=== PATIENT | male | born 1995 | race Caucasian/White ===

== ENCOUNTER 2016-11-10 09:01 | Outpatient (CLI) | payer OTHER | END 2016-11-10 09:02 | disposition home or self-care (01) | DX: M75.102 Unspecified rotator cuff tear or rupture of left shoulder, not specified as traumatic (principal) ==

== ENCOUNTER 2019-05-19 16:06 | Emergency (ER) | payer OTHER ==
[2019-05-19 16:16] VITALS: BP 122/74
--- NOTE | 2019-05-19 16:31 | ED Physician Documentation ---
PD HPI HEENT - Stated complaint Stated Complaint: THROAT PX - Chief complaint Chief Complaint: Heent - History obtained from History obtained from: Patient - History of Present Illness Timing - onset: How many weeks ago (1) Timing - duration: Weeks (1) Timing - details: Gradual onset, Still present Location: Throat Improves: Medication Worsens: Swalllowing Associated symptoms: Congestion, Rhinorrhea, Cough Similar symptoms before: Has not had sx before Recently seen: Not recently seen - Additional information Additional information: 23-year-old male has developed a sore throat he does not have cough or fever associated with this he does have a sensation of irritation to his throat behind his Amilcar's apple. He has pain with swallowing in his pain is worsened. He does now have some postnasal drip and is swallowing some phlegm. Review of Systems Constitutional: denies: Fever Eyes: denies: Decreased vision Ears: denies: Ear pain Nose: reports: Rhinorrhea / runny nose, Congestion Throat: reports: Sore throat Cardiac: denies: Chest pain / pressure, Palpitations Respiratory: reports: Cough. denies: Dyspnea GI: denies: Vomiting PD PAST MEDICAL HISTORY - Present Medications Home Medications: Ambulatory Orders Medication Instructions Recorded Confirmed Amox/Clav 875/125 [Augmentin] 1 each PO Q12H #20 tablet 05/19/19 - Allergies Allergies/Adverse Reactions: Allergies Allergy/AdvReac Type Severity Reaction Status Date / Time No Known Drug Allergies Allergy Verified 05/19/19 16:16 PD ED PE NORMAL - General General: Alert and oriented X 3, No acute distress, Well developed/nourished - HEENT HEENT: Atraumatic, PERRL, EOMI, Other (minimal inflamation to the right TM with retained landmarks. The left is clear and there is minimal exudate to the tonsils more on the right with some cryptic tonsil tissue with exudate. ) - Neck Neck: Supple, no meningeal sign, No bony TTP - Cardiac Cardiac: RRR, No murmur - Respiratory Respiratory: No respiratory distress, Clear bilaterally - Abdomen Abdomen: Soft, Non tender - Back Back: No CVA TTP, No spinal TTP - Derm Derm: Normal color, Warm and dry, No rash - Extremities Extremities: No deformity, No edema - Neuro Neuro: Alert and oriented X 3, offbearer sewer pipe 2-12 intact, No motor deficit, No sensory deficit, Normal speech Eye Opening: Spontaneous Motor: Obeys Commands Verbal: Oriented GCS Score: 15 - Psych Psych: Normal mood, Normal affect Results - Vitals Vitals: Vital Signs - 24 hr 05/19/19 16:12 Temperature 36.9 C Heart Rate 68 Respiratory 14 Rate Blood Pressure 122/74 O2 Saturation 99 Oxygen O2 Source Room air - Labs Labs: Laboratory Tests 05/19/19 15:25 Group A Strep Rapid Negative PD MEDICAL DECISION MAKING - ED course Complexity details: reviewed results, re-evaluated patient, considered differential, d/w patient ED course: 23 y/o male with post nasal drainage has a negative rapid strep and he is given a dose of decadron. He does have some inflamation in the right TM and exudate on the right tonsil Departure - Departure Disposition: 01 Home, Self Care Clinical Impression: Tonsillitis Condition: Stable Instructions: ED Tonsillitis Follow-Up: Per Acuna MD [Primary Care Provider] - Prescriptions: Amox/Clav 875/125 [Augmentin] 1 each PO Q12H #20 tablet
[2019-05-19] MEDS ORDERED: CHERRY SYRUP 10 ML UDC PO ONE (16:32)
[2019-05-19] MEDS ORDERED: DEXAMETHASONE 10 MG/ML VIAL PO STA (16:32)
== END 2019-05-19 16:56 | disposition home or self-care (01) ==
LOC: ED 16:06
DX: J03.90 Acute tonsillitis, unspecified (principal)
CPT/HCPCS: 87070; 87430; 99283; 99284; A9270